=== PATIENT | female | born 1950 | race Caucasian/White ===

== ENCOUNTER 2025-06-15 08:46 | Day surgery (SDC) | payer MEDICARE, BC ==
[~2025-06-15 08:46] MED LIST: Moxifloxacin 0.5% Ophth Soln 3 ML Bottle EYERT ONE; Ondansetron 4 MG/2 ML SDV IVPUSH PRN
[2025-06-15] MEDS ORDERED: Sodium Chloride 0.9% 10 ML Syringe IV ONE (08:47)
[2025-06-15] MEDS ORDERED: Dexamethasone 4 MG/ML SDV IV ONE (08:47)
[2025-06-15] MEDS ORDERED: Midazolam 1 MG/ML 2 ML SDV IV ONE (08:47)
[2025-06-15] MEDS: Povidone-Iodine 5% Sterile Ophth Soln 30 ML Bottle EYERT ONE ×2 (09:20→09:33)
[2025-06-15] MEDS: Phenylephrine 10% Ophth Soln 5 ML Bot EYERT ONE (09:22)
[2025-06-15] MEDS: Timolol Maleate 0.5% Ophth Soln 5 ML Bottle EYERT ONE (09:22)
[2025-06-15] MEDS: Cataract Ophth Solution EYERT ONE (09:23)
[2025-06-15] MEDS: Dexamethasone/Neomycin/Polymyxin B Ophth Oint 3.5 GM Tube EYERT ONE ×2 (09:43→09:50)
[2025-06-15] MEDS: Diclofenac Sodium 0.1% Ophth Soln 5 ML Bottle EYERT ONE ×2 (09:43→09:50)
[2025-06-15] MEDS: Apraclonidine 0.5% Ophth Soln 5 ML Bot EYERT ONE ×2 (09:43→09:50)
== END 2025-06-15 10:24 | disposition home or self-care (01) ==
LOC: DL.SDS 08:46
PROVIDERS: ATTEND Ophthalmology
DX: E11.36 Type 2 diabetes mellitus with diabetic cataract (principal); H25.811 Combined forms of age-related cataract, right eye; I10 Essential (primary) hypertension; K21.9 Gastro-esophageal reflux disease without esophagitis; Z88.8 Allergy status to other drugs, medicaments and biological substances; Z79.899 Other long term (current) drug therapy
CPT/HCPCS: A9270-GY; J1100; J2003; J2250; J3373; J3490; V2632